=== PATIENT | female | born 1960 | race Caucasian/White ===

== ENCOUNTER 2016-08-14 05:55 | Day surgery (SDC) | payer BC ==
[~2016-08-14 05:55] MED LIST: B12 PO; CIMZIA400 MG; CPAP; CYMBALTA60 M1 PO; DEXILANT60 M1 PO; FOLIC ACID0.4 M1 PO; IBUPROFEN200 M2 PO; LEVAQUIN750 M1 PO; LEVOTHYROXINE75 MC3 PO; MAXZIDE 37.5 M1 EAC1 PO; METOPROLOL TART50 M2 PO; MULTIPLE VITAM1 EAC3 PO; NASONEX17 G1; NORCO 5-325 TA1 EACH PO; NOVOLOG100 UNITS/ SC; NYSTATIN1 EAC6 TP; PHENTERMINE H37.5 M1 PO; TOPROL XL100 M1 PO; TOUJEO SOL300 UNIT/1 SC; TYLENOL325 M2 PO; VITAMIN D5000 UNI1 PO; XIGDUO XR 5 MG1 EAC1 PO; XULTOPHY 100 UNI3 ML SC
== END 2016-08-14 17:00 ==
LOC: SRG 05:55 → SHSB 05:57 → ORW 11:39 → PACU 13:04 → SHSB 14:13
PROC: 0HBT0ZZ Excision of Right Breast, Open Approach (ICD-10-PCS; principal; 2016-08-14)
PROC: 07B50ZX Excision of Right Axillary Lymphatic, Open Approach, Diagnostic (ICD-10-PCS; 2016-08-14)
DX: C50.511 Malignant neoplasm of lower-outer quadrant of right female breast (principal); I10 Essential (primary) hypertension; E78.00 Pure hypercholesterolemia, unspecified; M06.9 Rheumatoid arthritis, unspecified; E11.9 Type 2 diabetes mellitus without complications; E03.9 Hypothyroidism, unspecified; F41.9 Anxiety disorder, unspecified; F32.9 Major depressive disorder, single episode, unspecified; K21.9 Gastro-esophageal reflux disease without esophagitis; G47.30 Sleep apnea, unspecified; E66.01 Morbid (severe) obesity due to excess calories; Z68.37 Body mass index [BMI] 37.0-37.9, adult; Z88.2 Allergy status to sulfonamides; Z90.49 Acquired absence of other specified parts of digestive tract; Z17.0 Estrogen receptor positive status [ER+]; Z90.710 Acquired absence of both cervix and uterus; Z90.79 Acquired absence of other genital organ(s); Z79.899 Other long term (current) drug therapy; Z98.890 Other specified postprocedural states
CPT/HCPCS: A4648; A9520; J0690; J1170; J2250; J3010; Q9968